=== PATIENT | male | born 1945 | race Caucasian/White ===

== ENCOUNTER 2021-07-11 15:55 | Inpatient (IN) | payer BC, MEDICARE ==
[~2021-07-11] VITALS: Ht 180.3 cm; Wt 85.0 kg
--- NOTE | 2021-07-11 16:18 | NUR ---
BIB CARE FLIGHT WITH CHIEF C/O MID ANTERIOR CHEST PAIN THAT STARTED AT 0730 THIS MORNING. BY THE TIME PATIENT GOT TO [facility] PAIN HAD RESOLVED. 20 GAUGE IV STARTED AND 90 MCG LOVENOX, 324 ASA, 2.5 MG LOPRESSOR, AND 20 mEq KLC GIVEN AT TRANSFERRING HOSPITAL. VSS STABLE EN ROUTE. TROPONIN ELEVATED AND TRENDING UPWARDS FROM 0.14 TO 0.19. UPON ASSESSMENT PATIENT DENIES CHEST PAIN, STATES "I FEEL BETTER." CONNECTED TO MONITOR, VSS, CALL LIGHT WITHIN REACH.
--- NOTE | 2021-07-11 17:13 | NUR ---
ERMD AT BEDSIDE FOR EVALUATION.
--- NOTE | 2021-07-11 17:19 | NUR ---
FOOD TRAY ORDERED, OKAY TO EAT PER ERMD.
[2021-07-11] MEDS ORDERED: TERA2CAP3 PO (17:22)
--- NOTE | 2021-07-11 17:41 | NUR ---
DINNER TRAY GIVEN TO PATIENT.
[2021-07-11 18:20] LABS: TROPONIN I 0.648 ng/mL (0.000-0.045)
--- NOTE | 2021-07-11 18:22 | NUR ---
CRITICAL TROPONIN OF 0.[address] CLAYTON, NO ORDERS RECIEVED AT THIS TIME. PER ERMD PAGE OUT TO CARDIOLOGY.
[2021-07-11] MEDS ORDERED: SODIUM CHLORIDE FLUSH 10ML SYR IVF PRN (18:30)
--- NOTE | 2021-07-11 18:44 | NUR ---
PATIENT PLACED ON HOSPITAL BED.
[2021-07-11] MEDS ORDERED: ONDANSETRON 2MG/ML, 2ML IVPush PRN (19:00)
[2021-07-11] MEDS ORDERED: POLYETHYLENE GLYCOL 17 GM PACKET PO PRN (19:00)
[2021-07-11] MEDS ORDERED: LISINOPRIL 10 MG TABLET PO ONE (19:00)
[2021-07-11] MEDS ORDERED: MELATONIN 5 MG TABLET PO PRN (19:00)
[2021-07-11] MEDS ORDERED: morphine SULFATE 10 MG/ML, 1ML IVPush PRN (19:00)
[2021-07-11] MEDS ORDERED: LABETALOL 5MG/ML, 20ML IVPush PRN (19:00)
[2021-07-11] MEDS ORDERED: GUAIFENESIN/DM 200-20MG, 10ML UDC PO PRN (19:00)
[2021-07-11] MEDS ORDERED: ACETAMINOPHEN 500 MG TABLET PO PRN (19:00)
[2021-07-11] MEDS ORDERED: ASPIRIN 81 MG TABLET CHEW PO ONE (19:00)
[2021-07-11] MEDS ORDERED: ATORVASTATIN 80 MG TABLET ONE (19:11)
[2021-07-11] MEDS ORDERED: ENOXAPARIN 40 MG/0.4 ML ONE (19:11)
[2021-07-11] MEDS ORDERED: LISINOPRIL 5 MG TABLET ONE (19:11)
[2021-07-11] MEDS ORDERED: ASPIRIN 81 MG TABLET CHEW ONE (19:11)
[2021-07-11] MEDS ORDERED: CARVEDILOL 3.125 MG TABLET ONE (19:11)
[2021-07-11] MEDS: ENOXAPARIN 40 MG/0.4 ML SQ SCH (19:17)
--- NOTE | 2021-07-11 19:24 | NUR ---
1ST CONTACT C PT. RESTING IN HOSPITAL BED. DENIES ANY CP. VSS. GIVEN MEDS PER MAR, TOLERATED WELL. CALL LIGHT INREACH. AWARE OF PLAN FOR MIDNIGHT LABS, ECHO & EVENING MEDS. WILL CTM. LIGHTS TURNED DOWN.
[2021-07-11] MEDS: ATORVASTATIN 80 MG TABLET PO SCH (21:18)
[2021-07-11] MEDS: TERAZOSIN 5MG CAPSULE PO SCH (21:18)
[2021-07-12] VITALS (7 sets, daily range): BP systolic 153–186; BP diastolic 61–77
[2021-07-12 01:12] LABS: TROPONIN I 0.491 ng/mL (0.000-0.045)
[2021-07-12 05:45] LABS: BASOPHILS % (AUTO) 1 % (0-1); EOSINOPHILS % (AUTO) 5 % (1-7); LYMPHOCYTES % (AUTO) 18 % (22-44); MEAN CORPUSCULAR HGB CONC 33.9 g/dL (33.2-36.2); MEAN PLATELET VOLUME 8.5 fL (7.4-10.4); MONOCYTES % (AUTO) 10 % (2-9); NEUTROPHILS % (AUTO) 66 % (42-75); PLATELET COUNT 175 x10^3/uL (130-400); RED CELL DISTRIBUTION WIDTH 15.2 % (9.4-14.8)
[2021-07-12 05:48] LABS: CHLORIDE 111 mmol/L (98-107)
[2021-07-12 05:53] LABS: ANION GAP 5 mmol/L (5-15); CALCIUM 7.9 mg/dL (8.5-10.1); CREATININE 1.07 mg/dL (0.7-1.3)
[2021-07-12] MEDS ORDERED: CARVEDILOL 3.125 MG TABLET PO SCH (06:00)
[2021-07-12 07:21] LABS: ALBUMIN 2.2 g/dL (3.4-5.0); BILIRUBIN, DIRECT 0.1 mg/dL (0.1-0.2)
[2021-07-12 07:23] LABS: BILIRUBIN,INDIRECT 0.6 mg/dL (0.0-2.0); BILIRUBIN,TOTAL 0.7 mg/dL (0.2-1.0); CHOL/HDL RATIO 2.9; LDL/HDL RATIO 1.6 (0.5-3.0); TOTAL PROTEIN 5.5 g/dL (6.4-8.2)
[2021-07-12] MEDS: ASPIRIN 81 MG TABLET EC PO SCH (08:36)
[2021-07-12] MEDS: TERAZOSIN 2MG CAPSULE PO SCH (08:36)
[2021-07-12] MEDS ORDERED: LISINOPRIL 5 MG TABLET PO SCH ×2 (09:00→21:00)
[2021-07-12] MEDS ORDERED: CARVEDILOL 6.25 MG TABLET PO SCH (18:00)
[2021-07-12] MEDS: CARVEDILOL 12.5 MG TABLET PO SCH (18:04)
[2021-07-12] MEDS: ENOXAPARIN 40 MG/0.4 ML SQ SCH (19:56)
[2021-07-12] MEDS: ATORVASTATIN 80 MG TABLET PO SCH (19:56)
[2021-07-12] MEDS: TERAZOSIN 5MG CAPSULE PO SCH (19:57)
[2021-07-13 02:14] VITALS: BP 168/67
[2021-07-13] MEDS: ASPIRIN 81 MG TABLET EC PO SCH (05:21)
[2021-07-13] MEDS: CARVEDILOL 12.5 MG TABLET PO SCH (05:21)
[2021-07-13 06:12] VITALS: BP 169/65
[2021-07-13] MEDS ORDERED: REGADENOSON 0.4 MG/5 ML SYRINGE ONE (08:11)
[2021-07-13] MEDS ORDERED: LISINOPRIL 20 MG TABLET PO SCH (09:00)
[2021-07-13] MEDS: TERAZOSIN 2MG CAPSULE PO SCH (09:55)
[2021-07-13] MEDS ORDERED: CARV12.52 PO (12:00)
[2021-07-13] MEDS ORDERED: ATOR-2 PO (12:00)
[2021-07-13] MEDS ORDERED: ASPI81TA45 PO (12:00)
[2021-07-13] MEDS ORDERED: LISI-170 PO (12:00)
[2021-07-13 12:32] VITALS: BP 175/76
== END 2021-07-13 14:15 | disposition home or self-care (01) | DRG 281 ==
LOC: ED 16:15 → EDIP 19:20 → 5SO 20:15
PROVIDERS: ADMIT Internal Medicine; ATTEND Hospitalist
DX: I21.4 Non-ST elevation (NSTEMI) myocardial infarction (principal); I50.30 Unspecified diastolic (congestive) heart failure; N40.0 Benign prostatic hyperplasia without lower urinary tract symptoms; I11.0 Hypertensive heart disease with heart failure; E88.09 Other disorders of plasma-protein metabolism, not elsewhere classified; D64.9 Anemia, unspecified; I27.20 Pulmonary hypertension, unspecified; R00.1 Bradycardia, unspecified; Z85.820 Personal history of malignant melanoma of skin; Z86.16 Personal history of COVID-19; Z87.01 Personal history of pneumonia (recurrent)
CPT/HCPCS: 36415; 71045; 78452; 80048; 80061; 80076; 84443; 84484; 85025; 93005; 93017; 93306; 93356; 99285; G0378; J1650; J2785; A9502